=== PATIENT | male | born 1975 | race Caucasian/White ===

== ENCOUNTER 2017-12-11 08:52 | Emergency (ER) | payer SELFPAY ==
--- NOTE | 2017-12-11 10:26 | RAD ---
INDICATION: Left ankle injury. TECHNIQUE: 3 views of the left ankle were obtained. FINDINGS: Soft tissue swelling is noted along the anterolateral aspect of the ankle. No fracture is seen. Joint spaces appear maintained. 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 IMPRESSION: SOFT TISSUE SWELLING.
--- NOTE | 2017-12-11 10:56 | UC ---
Lower Extremity/Ankle HPI - HPI Summary HPI Summary: 42 yo male with left ankle pain x 1 month no recalled injury has been taking motrin daily has had 3-4 nosebleeds in the past week all stop with pressure within 15 minutes no bruising - History of Current Complaint Chief Complaint: UCLowerExtremity Stated Complaint: ANKLE PAIN NOSE BLEEDS Time Seen by Provider: 12/11/17 09:54 Hx Obtained From: Patient Onset/Duration: Sudden Onset, Lasting Weeks - 4 Severity Initially: Moderate Severity Currently: Moderate Pain Intensity: 6 Pain Scale Used: 0-10 Numeric Aggravating Factor(s): Standing, Ambulation Alleviating Factor(s): Rest Able to Bear Weight: Yes - Allergies/Home Medications Allergies/Adverse Reactions: Allergies Allergy/AdvReac Type Severity Reaction Status Date / Time Hydrocodone [From Vicodin] Allergy GI Upset Verified 12/11/17 09:03 Home Medications: Home Medications Ibuprofen [Advil] 800 mg PO Q6H PRN 12/11/17 [History Confirmed 12/11/17] PMH/Surg Hx/FS Hx/Imm Hx Previously Healthy: Yes - Surgical History Surgical History: Yes Surgery Procedure, Year, and Place: Ulnar and radius plates and screws 1987. Femur fracture- 1987 - Family History Known Family History: Positive: Other - mom with DJD Negative: Diabetes - Social History Alcohol Use: Daily Substance Use Type: Marijuana Smoking Status (MU): Never Smoked Tobacco Review of Systems Constitutional: Negative Skin: Negative Eyes: Negative ENT: Epistaxis Respiratory: Negative Cardiovascular: Negative Gastrointestinal: Negative Genitourinary: Negative Motor: Negative Neurovascular: Negative Musculoskeletal: Arthralgia Neurological: Negative Psychological: Negative Is Patient Immunocompromised?: No All Other Systems Reviewed And Are Negative: Yes Physical Exam Triage Information Reviewed: Yes Appearance: Well-Appearing, No Pain Distress, Well-Nourished Vital Signs: Initial Vital Signs Temp 98.7 F 12/11/17 09:04 Pulse 66 12/11/17 09:04 Resp 18 12/11/17 09:04 BP 105/73 12/11/17 09:04 Pulse Ox 100 12/11/17 09:04 Eyes: Positive: Conjunctiva Clear ENT: Positive: Hearing grossly normal, TMs normal. Negative: Nasal congestion, Nasal drainage, Trismus, Muffled voice, Hoarse voice Neck: Positive: Supple, Nontender Respiratory: Positive: Lungs clear, Normal breath sounds, No respiratory distress, No accessory muscle use Cardiovascular: Positive: RRR, No Murmur Musculoskeletal: Positive: Edema @ - lateral left ankle, Other: - distal n/v intact Neurological: Positive: Alert Psychological Exam: Normal Skin Exam: Normal Lower Extremity Course/Dx - Differential Dx/Diagnosis Provider Diagnoses: left ankle pain/swelling of uncertain cause. epistaxis Discharge - Discharge Plan Condition: Stable Disposition: HOME Prescriptions: traMADol TAB* [Ultram*] 50 mg PO Q6HR PRN #12 tab MDD 4 PRN Reason: Pain Patient Education Materials: Nosebleed (ED), Swollen Joint (ED) Forms: *Work Release Referrals: [facility] [Outside] - As Soon As Possible Additional Instructions: cam boot rest elevate ice no motrin for the next 2-3 days Images Feet (Multiple View): 1 - tender/swollen
== END 2017-12-11 11:20 | disposition home or self-care (01) ==
LOC: UCEAST 08:52
DX: M25.572 Pain in left ankle and joints of left foot (principal); M25.472 Effusion, left ankle; R04.0 Epistaxis; Z88.5 Allergy status to narcotic agent; F12.90 Cannabis use, unspecified, uncomplicated
CPT/HCPCS: 99202; G0463